=== PATIENT | male | born 1960 | race African-American/Black ===

== ENCOUNTER 2018-11-06 21:28 | Emergency (ER) | payer MEDICAID ==
[~2018-11-06] VITALS: Ht 172.7 cm; Wt 78.0 kg
[2018-11-07 00:30] VITALS: BP 139/99
== END 2018-11-07 00:37 | disposition home or self-care (01) ==
LOC: ER 21:28
DX: R04.0 Epistaxis (principal); I10 Essential (primary) hypertension
CPT/HCPCS: 99283